=== PATIENT | male | born 1995 | race Caucasian/White ===

== ENCOUNTER 2020-11-11 21:08 | Emergency (ER) | payer OTHER ==
[2020-11-12 01:22] LABS: HEMOGLOBIN 16.7 gm/dl (14.0-17.5); RED BLOOD COUNT 5.94 M/UL (4.20-5.50); WHITE BLOOD COUNT 16.2 K/UL (4.5-11.0)
[2020-11-12 01:38] LABS: BUN/CREATININE RATIO 14 (0-10)
[2020-11-12] MEDS ORDERED: VENTOLIN HFA 66.7 GM INH (02:30)
== END 2020-11-12 03:00 | disposition home or self-care (01) ==
LOC: ER1 21:08
PROVIDERS: Emergency Medicine
DX: J06.9 Acute upper respiratory infection, unspecified (principal); F17.200 Nicotine dependence, unspecified, uncomplicated
CPT/HCPCS: 71046; 80053; 81001; 82550; 82553; 83735; 83874; 84484; 85025; 85379; 93005; 94664; 99285

== ENCOUNTER → 2021-11-30 | Outpatient (CLI) | payer OTHER ==
[~2021-11-30] MED LIST: COLACE100 MG PO; HYDROCODON-ACE1 EAC2 PO; VENTOLIN HFA 66.7 GM INH
== END ==
LOC: EMI 16:11
DX: M54.2 Cervicalgia (principal)
CPT/HCPCS: 72141